=== PATIENT | male | born 1955 | race Caucasian/White ===

== ENCOUNTER 2016-12-06 16:58 | Emergency (ER) | payer OTHER ==
[~2016-12-06] VITALS: Ht 182.9 cm; Wt 61.3 kg
[~2016-12-06 16:58] MED LIST: ADVAIR HFA120 INHALA IH; ADVIL,NUPRIN,M200 MG PO; AMLODIPINE BESYL5 MG PO; B COMPLETE1 EACH PO; COMBIVENT RESPIM4 GM IH; COUMADIN7.5 MG PO; DAILY VALUE1 EACH PO; ERGOCALCIF50000 UNIT PO; FAMOTIDINE20 MG PO; FOLIC ACID0.4 MG PO; GUAIFENESIN WI120 M1 PO; IBUPROFEN200 M1 PO; JANTOVEN7.5 MG PO; LASIX20 MG PO; LEVAQUIN500 MG PO; LOPRESSOR25 MG PO; LOPRESSOR50 MG PO; LOVENOX80 MG/0.8 SC; MILK OF MAGNESI10 ML PO; MORPHINE SULFA100 M2 PO; NORVASC5 MG PO; PANTOPRAZOLE SO40 MG PO; PREDNISONE10 MG PO; PREDNISONE20 MG PO; PROTONIX40 MG PO; SENNA8.6 MG PO; SPIRIVA1 INHALATI IH; TYLENOL EXTRA500 MG PO; WARFARIN SODIU7.5 MG PO
[2016-12-06 18:30] LABS: BASOPHIL COUNT 0.1 K/uL (0-0.1); EOSINOPHIL (%) 1.1 % (0-5); EOSINOPHIL COUNT 0.1 K/uL (0-0.3); HEMATOCRIT 38.7 % (38.0-50.0); IMMATURE GRANULOCYTE (%) 0.4 % (0.0-0.7); INSTRUMENT ABS NEUTROPHIL CT 5.9 K/uL; LYMPHOCYTE COUNT 2.2 K/uL (1.0-2.8); MCHC 33.6 G/DL (30.0-36.0); MCV 101.3 FL (86-99); MEAN PLAT.VOLUME 10.4 uM^3 (9.0-12.4); MONOCYTE (%) 7.3 % (3-12); MONOCYTE COUNT 0.7 K/uL (0-0.8); NEUTROPHIL COUNT 5.9 K/uL (1.8-6.4); PLATELET COUNT 185 K/uL (156-360); RBC DIS.WIDTH-CV 13.3 % (11.8-14.6); RED BLOOD COUNT 3.82 M/uL (4.00-5.50); WHITE BLOOD COUNT 8.9 K/uL (4.1-10.2)
[2016-12-06 18:41] LABS: CHLORIDE 105 mEq/L (99-109); POTASSIUM 2.9 mEq/L (3.7-5.4); SODIUM 140 mEq/L (136-147)
[2016-12-06 18:43] LABS: GLUCOSE 89 mg/dL (70-99)
[2016-12-06 18:45] LABS: ANION GAP 12 MEQ/L (2-14)
[2016-12-06 18:47] LABS: ALKALINE PHOSPHATASE 157 IU/L (3-129); GFR ESTIMATE (CALCULATED) > 59 mL/min/
[2016-12-06 18:48] LABS: UREA NITROGEN (BUN) 13 mg/dL (9-23)
[2016-12-06 18:49] LABS: DIRECT BILIRUBIN 0.6 mg/dL (0.0-0.3)
[2016-12-06 18:50] LABS: TROP-I INTERPRETATION NEGATIVE; TROPONIN-I 0.09 ng/mL (0.0-0.30)
[2016-12-06 19:09] LABS: ADD MIUA? NO; BILIRUBIN NEGATIVE; BLOOD NEGATIVE; COLOR STRAW ((YELLOW)); GLUCOSE (STRIP) NEGATIVE; KETONES NEGATIVE; LEUKOCYTES NEGATIVE; NITRITE NEGATIVE; PROTEIN (STRIP) NEGATIVE; SPECIFIC GRAVITY 1.006 (1.000-1.030); UCUL ADDED? NO; UROBILINOGEN 0.2 MG/DL (0.2-1.0)
[2016-12-06 21:33] VITALS: BP 130/80
[2016-12-08] MEDS ORDERED: LOPRESSOR50 MG PO (08:24)
[2016-12-08] MEDS ORDERED: COUMADIN7.5 MG PO (08:26)
[2016-12-08] MEDS ORDERED: MS CONTIN100 MG PO (08:27)
[2016-12-08] MEDS ORDERED: VITAMIN C500 M1 PO (08:27)
[2016-12-08] MEDS ORDERED: VITAMIN B COMP1 EACH PO (08:27)
[2016-12-08] MEDS ORDERED: MULTIVITAMIN1 EAC2 PO (08:28)
== END 2016-12-06 21:33 | disposition home or self-care (01) ==
LOC: EME 16:58
PROVIDERS: Emergency Medicine
DX: K52.9 Noninfective gastroenteritis and colitis, unspecified (principal); E86.0 Dehydration; I95.9 Hypotension, unspecified; J44.9 Chronic obstructive pulmonary disease, unspecified; I10 Essential (primary) hypertension; K21.9 Gastro-esophageal reflux disease without esophagitis; G89.29 Other chronic pain; Z86.73 Personal history of transient ischemic attack (TIA), and cerebral infarction without residual deficits; Z85.47 Personal history of malignant neoplasm of testis; Z95.2 Presence of prosthetic heart valve; F17.200 Nicotine dependence, unspecified, uncomplicated
CPT/HCPCS: 71010; 80053; 81003; 82248; 83605; 84484; 85025; 87040; 93005; 99281; 99285; J2543; J3370; J7030

== ENCOUNTER 2017-04-25 22:20 | Observation (INO) | payer OTHER ==
[~2017-04-25] VITALS: Ht 182.9 cm; Wt 63.6 kg
[~2017-04-25 22:20] MED LIST changes: +MS CONTIN100 MG PO; +MULTIVITAMIN1 EAC2 PO; +VITAMIN B COMP1 EACH PO; +VITAMIN C500 M1 PO
[2017-04-25 23:03] LABS: BASOPHIL (%) 0.7 % (0-1); BASOPHIL COUNT 0.1 K/uL (0-0.1); EOSINOPHIL (%) 0.4 % (0-5); HEMATOCRIT 40.8 % (38.0-50.0); HEMOGLOBIN 14.1 G/DL (12.5-16.6); IMMATURE GRANULOCYTE (%) 0.2 % (0.0-0.7); LYMPHOCYTE (%) 21.2 % (15-42); LYMPHOCYTE COUNT 1.8 K/uL (1.0-2.8); MCH 31.7 PG (29.0-34.0); MCHC 34.6 G/DL (30.0-36.0); MCV 91.7 FL (86-99); MONOCYTE (%) 9.4 % (3-12); MONOCYTE COUNT 0.8 K/uL (0-0.8); NEUTROPHIL (%) 68.1 % (45-76); NEUTROPHIL COUNT 5.8 K/uL (1.8-6.4); PLATELET COUNT 250 K/uL (156-360); RBC DIS.WIDTH-CV 15.9 % (11.8-14.6); RBC DIS.WIDTH-SD 54.1 % (39-53); RED BLOOD COUNT 4.45 M/uL (4.00-5.50); WHITE BLOOD COUNT 8.5 K/uL (4.1-10.2)
[2017-04-25 23:09] LABS: INTER. NORMALIZED RATIO 1.5
[2017-04-25 23:12] LABS: ALBUMIN 3.8 g/dL (3.2-4.8); CHLORIDE 103 mEq/L (99-109); POTASSIUM 3.4 mEq/L (3.7-5.4); PTT 35.8 SEC (25-37); SODIUM 139 mEq/L (136-147)
[2017-04-25 23:15] LABS: GLUCOSE 97 mg/dL (70-99); TOTAL PROTEIN 6.1 g/dL (6.4-8.3)
[2017-04-25 23:17] LABS: TOTAL BILIRUBIN 0.7 mg/dL (0.0-1.0)
[2017-04-25 23:18] LABS: ALKALINE PHOSPHATASE 166 IU/L (3-129); SERUM ETHYL ALCOHOL 244 mg/dL
[2017-04-25 23:19] LABS: CREATININE 0.7 mg/dL (0.6-1.3); GFR ESTIMATE (CALCULATED) > 59 mL/min/ (58.99-99999)
[2017-04-25 23:20] LABS: AST (GOT) 82 IU/L (2-34); UREA NITROGEN (BUN) 13 mg/dL (9-23)
[2017-04-25 23:21] LABS: ALT (GPT) 46 IU/L (3-49)
[2017-04-25 23:27] LABS: TROP-I INTERPRETATION NEGATIVE; TROPONIN-I 0.02 ng/mL (0.0-0.30)
[2017-04-26 01:10] LABS: LIPASE < 0 U/L (1.0-51.0)
[2017-04-26 04:28] VITALS: BP 135/78
[2017-04-26 05:22] LABS: TROP-I INTERPRETATION NEGATIVE; TROPONIN-I 0.04 ng/mL (0.0-0.30)
[2017-04-26] MEDS ORDERED: COUMADIN7.5 MG PO ×2 (06:28)
[2017-04-26 07:52] VITALS: BP 125/69
== END 2017-04-26 09:55 | disposition left against medical advice (07) ==
LOC: EME 22:20 → EDOF 04-26 02:32 → 5WEST 04-26 02:32 → EDOF 04-26 02:32 → ENRESERV 04-26 02:37 → 5WEST 04-26 04:09
PROVIDERS: Emergency Medicine; Hospitalist
DX: R55 Syncope and collapse (principal); R09.02 Hypoxemia; F10.129 Alcohol abuse with intoxication, unspecified; Y90.8 Blood alcohol level of 240 mg/100 ml or more; E86.0 Dehydration; G89.29 Other chronic pain; M54.5 Low back pain; K85.90 Acute pancreatitis without necrosis or infection, unspecified; Z79.01 Long term (current) use of anticoagulants; R79.1 Abnormal coagulation profile; F17.210 Nicotine dependence, cigarettes, uncomplicated; Z95.2 Presence of prosthetic heart valve; Z85.47 Personal history of malignant neoplasm of testis; Z87.01 Personal history of pneumonia (recurrent); J44.9 Chronic obstructive pulmonary disease, unspecified; M45.9 Ankylosing spondylitis of unspecified sites in spine; I10 Essential (primary) hypertension; E78.5 Hyperlipidemia, unspecified; Z79.891 Long term (current) use of opiate analgesic; Z90.49 Acquired absence of other specified parts of digestive tract
CPT/HCPCS: 71045; 72132; 74177; 80053; 81003; 83690; 84484; 85025; 85610; 85730; 87641; 93005; 94799; 99281; 99285; G0378; G0480; J1170; J1644; J2270; J2405; J3411; J3475; J7030; J7050

== ENCOUNTER 2017-09-27 00:43 | Emergency (ER) | payer OTHER ==
[~2017-09-27] VITALS: Ht 182.9 cm; Wt 61.4 kg
[2017-09-27 01:28] LABS: HEMATOCRIT 40.1 % (38.0-50.0); HEMOGLOBIN 14.6 G/DL (12.5-16.6); MCH 33.2 PG (29.0-34.0); MCHC 36.4 G/DL (30.0-36.0); MCV 91.1 FL (86-99); PLATELET COUNT 214 K/uL (156-360); RBC DIS.WIDTH-SD 43.8 % (39-53); WHITE BLOOD COUNT 12.6 K/uL (4.1-10.2)
[2017-09-27 01:33] LABS: INTER. NORMALIZED RATIO 1.6
[2017-09-27 01:36] LABS: ALBUMIN 4.2 g/dL (3.2-4.8); PTT 32.3 SEC (25-37)
[2017-09-27 01:37] LABS: CHLORIDE 102 mEq/L (99-109); POTASSIUM 3.2 mEq/L (3.7-5.4); SODIUM 138 mEq/L (136-147)
[2017-09-27 01:39] LABS: GLUCOSE 109 mg/dL (70-99); TOTAL PROTEIN 6.5 g/dL (6.4-8.3)
[2017-09-27 01:41] LABS: TOTAL BILIRUBIN 1.8 mg/dL (0.0-1.0)
[2017-09-27 01:42] LABS: ALKALINE PHOSPHATASE 171 IU/L (3-129)
[2017-09-27 01:43] LABS: CREATININE 0.7 mg/dL (0.6-1.3); GFR ESTIMATE (CALCULATED) > 59 mL/min/ (58.99-99999)
[2017-09-27 01:44] LABS: AST (GOT) 48 IU/L (2-34); UREA NITROGEN (BUN) 22 mg/dL (9-23)
[2017-09-27 01:45] LABS: ALT (GPT) 41 IU/L (3-49)
[2017-09-27 01:46] LABS: LIPASE 2 U/L (1.0-51.0)
[2017-09-27 01:52] LABS: TROP-I INTERPRETATION NEGATIVE; TROPONIN-I < 0.01 ng/mL (0.0-0.30)
[2017-09-27 04:21] LABS: TROP-I INTERPRETATION NEGATIVE; TROPONIN-I < 0.01 ng/mL (0.0-0.30)
[2017-09-27] MEDS ORDERED: ZOFRAN4 MG PO (05:45)
[2017-09-27 06:10] VITALS: BP 135/99
== END 2017-09-27 06:11 | disposition home or self-care (01) ==
LOC: EME → EDBD 00:43 → EME 06:11
PROVIDERS: Emergency Medicine
DX: F11.23 Opioid dependence with withdrawal (principal); I49.1 Atrial premature depolarization; I45.81 Long QT syndrome; R94.31 Abnormal electrocardiogram [ECG] [EKG]; I10 Essential (primary) hypertension; J44.9 Chronic obstructive pulmonary disease, unspecified; K21.9 Gastro-esophageal reflux disease without esophagitis; F17.200 Nicotine dependence, unspecified, uncomplicated; Z79.01 Long term (current) use of anticoagulants; Z87.39 Personal history of other diseases of the musculoskeletal system and connective tissue; Z95.2 Presence of prosthetic heart valve; Z86.73 Personal history of transient ischemic attack (TIA), and cerebral infarction without residual deficits; Z85.47 Personal history of malignant neoplasm of testis
CPT/HCPCS: 71046; 80053; 83690; 84484; 85027; 85610; 85730; 93005; 99281; 99285; J2270; J2405; J7030

== ENCOUNTER 2017-09-28 03:44 | Emergency (ER) | payer OTHER ==
[~2017-09-28] VITALS: Ht 182.9 cm; Wt 61.1 kg
[~2017-09-28 03:44] MED LIST changes: +ZOFRAN4 MG PO
[2017-09-28 04:23] LABS: HEMATOCRIT 40.4 % (38.0-50.0); HEMOGLOBIN 14.1 G/DL (12.5-16.6); MCH 32.9 PG (29.0-34.0); MCHC 34.9 G/DL (30.0-36.0); MCV 94.4 FL (86-99); PLATELET COUNT 193 K/uL (156-360); RBC DIS.WIDTH-CV 13.1 % (11.8-14.6); RBC DIS.WIDTH-SD 45.1 % (39-53); RED BLOOD COUNT 4.28 M/uL (4.00-5.50); WHITE BLOOD COUNT 13.2 K/uL (4.1-10.2)
[2017-09-28 04:35] LABS: ALBUMIN 4.2 g/dL (3.2-4.8)
[2017-09-28 04:36] LABS: CHLORIDE 102 mEq/L (99-109); SODIUM 136 mEq/L (136-147)
[2017-09-28 04:38] LABS: GLUCOSE 110 mg/dL (70-99); TOTAL PROTEIN 6.6 g/dL (6.4-8.3)
[2017-09-28 04:40] LABS: TOTAL BILIRUBIN 1.6 mg/dL (0.0-1.0)
[2017-09-28 04:41] LABS: ALKALINE PHOSPHATASE 165 IU/L (3-129); CREATININE 0.8 mg/dL (0.6-1.3); GFR ESTIMATE (CALCULATED) > 59 mL/min/ (58.99-99999)
[2017-09-28 04:43] LABS: AST (GOT) 54 IU/L (2-34); UREA NITROGEN (BUN) 17 mg/dL (9-23)
[2017-09-28 04:44] LABS: ALT (GPT) 39 IU/L (3-49)
[2017-09-28 04:45] LABS: POTASSIUM 4.8 mEq/L (3.7-5.4)
[2017-09-28 07:45] VITALS: BP 156/96
== END 2017-09-28 07:48 | disposition home or self-care (01) ==
LOC: EME 03:44
PROVIDERS: Emergency Medicine
DX: F11.23 Opioid dependence with withdrawal (principal); J43.9 Emphysema, unspecified; I10 Essential (primary) hypertension; K21.9 Gastro-esophageal reflux disease without esophagitis; Z86.73 Personal history of transient ischemic attack (TIA), and cerebral infarction without residual deficits; F17.200 Nicotine dependence, unspecified, uncomplicated; Z85.47 Personal history of malignant neoplasm of testis; Z95.2 Presence of prosthetic heart valve
CPT/HCPCS: 80053; 85027; 99281; 99285; J2270; J2405; J7030